=== PATIENT | female | born 1980 | race Caucasian/White ===

== ENCOUNTER 2019-02-12 09:23 | Emergency (ER) | payer OTHER, SELFPAY ==
--- NOTE | 2019-02-12 09:35 | DI.RAD.S_ITS ---
PROCEDURE: XR KNEE LT 3V INDICATIONS: pain TECHNIQUE: 3 views of the knee were acquired. COMPARISON: None. FINDINGS: Bones: No fractures or dislocations. No suspicious bony lesions. Soft tissues: No joint effusion. Intra-articular loose body projects over the suprapatellar recess measuring 18 mm. No suspicious soft tissue calcifications. IMPRESSION: Intra-articular loose body. No acute fracture. No osseous lesion. If symptoms and/or clinical suspicion for pathology persist, further assessment with repeat, or advanced imaging (e.g., CT, MRI, or bone scan) may be helpful for further assessment. Dictated by: Yanna Edwards M.D. on 02/12/2019 at 10:08 Approved by: Yanna Edwards M.D. on 02/12/2019 at 10:21
[2019-02-12 10:25] VITALS: BP 117/76; PULSE 58; RESP 15; TEMP 37.2; O2SAT 98; BMI 31.6
--- NOTE | 2019-02-12 10:35 | ED_ITS ---
HPI - Extremity Injury (Lower) General Chief Complaint: Extremity Injury, Lower Stated Complaint: LT KNEE/TORN LIGAMENT Time Seen by Provider: 02/12/19 09:33 Source: patient and family Mode of arrival: wheelchair Limitations: no limitations History of Present Illness HPI Narrative: 38-year-old female nonsmoker with largely normal medical history presents with knee pain since an injury a few days ago. She was sitting in a chair and had her leg bent under her and lean forward when she felt a pop in tearing sensation in her left knee and states that she is pretty sure a ligament moved from the lateral portion of her knee up and over her kneecap to the medial aspect. She states it was causing excruciating pain that radiated down her leg until it popped back. She now has some swelling in her knee which is going down her calf into her ankle. She states her pain is worse with motion and improves with rest. She denies any numbness, tingling or weakness. She does state that her knee feels slightly unstable. She does have a history of internal derangement to this knee and has had some type of surgery in the past but cannot remember exactly what that was MD complaint: knee injury Onset (ago): day(s) Injury: Left: knee Type of Injury: hyperflexion Place: home Severity: severe Relieving factors: rest Exacerbating factors: weight bearing and movement Associated symptoms: snap/pop sensation, swelling and unable to bear weight Related Data Allergies Allergy/AdvReac Type Severity Reaction Status Date / Time No Known Drug Allergies Allergy Verified 02/12/19 10:25 Review of Systems Constitutional Denies chills, Denies fever(s), Denies lethargy and Denies weakness Eyes Denies change in vision, Denies eye discharge, Denies irritation and Denies loss of vision ENT Ears, Nose, Mouth, and Throat: Denies change in voice, Denies neck pain and Denies sore throat Cardiovascular Denies chest pain, Denies irregular heart rhythm, Denies lightheadedness, Denies palpitations, Denies dyspnea, Denies dyspnea on exertion and Denies orthopnea Respiratory Denies cough, Denies dyspnea, Denies dyspnea on exertion and Denies wheezing Gastrointestinal Gastrointestinal: Denies abdominal pain, Denies change in bowel habits, Denies diarrhea, Denies nausea and Denies vomiting Genitourinary Denies hematuria, Denies flank pain, Denies urinary incontinence and Denies urinary urgency Musculoskeletal Reports arthralgias, Reports joint swelling, Reports limited range of motion and Denies neck pain Integumentary/Breasts Denies pruritus, Denies erythema, Denies rash and Denies wounds Neurologic Denies confusion, Denies loss of vision and Denies weakness Psychiatric Denies anxiety, Denies confusion, Denies depression, Denies homicidal ideation and Denies suicidal ideation Endocrine Denies palpitations Hematologic/Lymphatic Denies easy bruising Allergic/Immunologic Denies wheezing Exam Narrative Exam Narrative: GEN: AOx3 and in mild distress EYES: Pupils are equal, round, and reactive to light and accommodation. Extraoccular muscles are intact bilaterally. There is no subconjunctival hemorrhage or exudate. CHEST: Lungs are clear to auscultation bilaterally and free of wheezes, rales, or rhonchi. Heart rate is regular rhythm, there are no murmurs, clicks, rubs, or gallops. There is no chest wall tenderness. ABD: Abdomen is soft and nontender. There is no guarding or rebound. Bowel sounds are normal in all 4 quadrants. There is no mass or organomegaly. EXT: patient's full but painful range of motion of the left knee with a mild effusion. She has some pain in the popliteal fossa but no significant joint line tenderness. She does not demonstrate any obvious ligamentous instability. She does have some swelling distal to the knee which settles in the ankle but no pain in the ankle itself. There is no redness, warmth of her calf to suggest DVT or complication of a Govea cyst rupture SKIN: Warm, pink, and dry. No erythema or rash Initial Vital Signs Initial Vital Signs: Vital Signs Temperature 99.0 F 02/12/19 10:25 Pulse Rate 58 L 02/12/19 10:25 Respiratory Rate 15 02/12/19 10:25 Blood Pressure 117/76 02/12/19 10:25 Pulse Oximetry 98 02/12/19 10:25 Procedures Orthopedic Splinting/Casting Injury #1: Side: left Lower Extremity Injury Location: knee Lower Extremity Immobilizer: knee immobilizer Post splinting neuro exam: intact Post splinting vascular exam: intact Placed by: Nursing Course Orders Ordered: ED Orders 02/12/19 09:35 XR knee LT 3V Stat MDM - Extremity Injury (Lower) Differential Diagnosis Likely acute internal derangement of knee Imaging Data Knee Xray: Radiologist's impression: [address] [address] XRay Report Signed Patient: Carissa Mallory#: [id number] : 1980Acct:[id number] Age/Sex: 38 / FDate of Service: 02/12/19 Loc: ED Accession Number: [id number] Procedure: XR knee LT 3V Ordering Provider: Uriel Randolph D.O. PROCEDURE: XR KNEE LT 3V INDICATIONS: pain TECHNIQUE: 3 views of the knee were acquired. COMPARISON: None. FINDINGS: Bones: No fractures or dislocations. No suspicious bony lesions. Soft tissues: No joint effusion. Intra-articular loose body projects over the suprapatellar recess measuring 18 mm. No suspicious soft tissue calcifications. IMPRESSION: Intra-articular loose body. No acute fracture. No osseous lesion. If symptoms and/or clinical suspicion for pathology persist, further assessment with repeat, or advanced imaging (e.g., CT, MRI, or bone scan) may be helpful for further assessment. Dictated by: Yanna Edwards M.D. on 02/12/2019 at 10:08 Approved by: Yanna Edwards M.D. on 02/12/2019 at 10:21 MDM Narrative Medical decision making narrative: 38-year-old female with history of knee injury and surgery presents with a new injury and swelling, pain and sensation of instability which is concerning for internal derangement of the knee such as ligamentous tear or meniscal involvement. Exam demonstrates no ligamentous laxity and sensation of instability made be due to effusion versus a more concerning cause such is ligamentous tear. X-ray was unremarkable and knee immobilizer provided. I mentioned to the patient that I thought an MRI was the most likely next reasonable step but that would have to happen as an outpatient. She seemed a bit upset at this and wanted an MRI today but I informed her that is not something that we typically happen out of the emergency department. Encouraged her to follow up with her primary care providers and gave her contact info for our orthopedist in the event things did not move forward and improve. Eventually she seemed to have her questions answered to her apparent satisfaction and felt better with an immobilizer and was able to ambulate without significant difficulty or crutches Discharge Plan Departure Patient Disposition: Home Clinical Impression: Internal derangement of knee Qualifiers: Laterality: left Qualified Code(s): M23.92 - Unspecified internal derangement of left knee Discharge Date/Time: 02/12/19 11:13 Interventions: ED Discharge Assessment Last Done: 02/12/19 11:12 Instructions: DI for Knee Sprain Activity Restrictions/Additional Instructions: *You have been diagnosed with [ acute internal derangement of left knee, possible ligamentous or meniscal tear ] *What to do: *Take medications as directed *Follow up with your primary care provider in 2-3 days, call for an appointment. Let them know you were seen in the Emergency Department and that we ask that you be seen in follow up. Additionally, I provided the contact information for our on-call orthopedist should you wish to follow up with him *Return to ER if you should have any new, worsening or concerning symptoms * your x-ray today was interpreted as no fracture or dislocation. Your exam would suggest a soft tissue injury and it seems reasonable for your primary care provider to consider an MRI of your knee. Please discuss this at your follow up Referrals: Chris Campbell MD [Physician] -
--- NOTE | 2019-02-12 11:11 | PC.NURSE ---
[facility] and is slow, upset not able to get mri .
== END 2019-02-12 11:13 | disposition home or self-care (01) ==
PROVIDERS: Emergency Provider Emergency Medicine
DX: M23.92 Unspecified internal derangement of left knee (principal)
CPT/HCPCS: 73562; 99283

== ENCOUNTER → 2019-03-21 18:55 | Outpatient (CLI) | payer OTHER, SELFPAY ==
--- NOTE | 2019-03-21 | DI.MRI.S_ITS ---
PROCEDURE: MR KNEE LT WO CON INDICATIONS: Left Knee pain TECHNIQUE: Noncontrast sagittal PD fast spin echo and T2 fast spin echo with fat saturation, sagittal 3-D FLASH with fat saturation; coronal T1 spin echo and PD fast spin echo with fat saturation, and axial PD fast spin echo with fat saturation through the knee. COMPARISON: [facility], MR, LOWER EXTREM. JNT WO CONTRAST, 02/09/2010, 16:57. FINDINGS: Image quality: Excellent. Menisci: Lateral meniscus appears intact. No definite medial meniscal tear is identified however there is prominent fluid signal intensity adjacent to the anterior horn which raises the possibility of para meniscal cyst related to occult meniscal tear versus atypical meniscosynovial recess. Cruciate ligaments: The anterior and posterior cruciate ligaments appear intact. Medial structures: The medial collateral ligament appears intact. The posterior oblique ligament, semimembranosus tendon insertions, oblique popliteal ligament, and meniscocapsular junction appear intact. Visualized portions of the pes anserinus tendons appear normal. No abnormal bursal fluid. Lateral structures: The lateral collateral ligament, long and short heads of the biceps femoris tendon appear intact. The popliteus tendon appears normal; the popliteofibular ligament appears intact. The posterosuperior and anteroinferior popliteomeniscal fascicles appear intact. The arcuate and fabellofibular ligaments appear intact, on either side of the lateral inferior geniculate artery. Iliotibial band appears normal. Anterior structures: Prepatellar and superficial infrapatellar subcutaneous edema/fluid.The quadriceps and patellar tendons appear intact. Patellar alignment is normal. No femoral trochlear dysplasia or ventral trochlear prominence. No edema in the infrapatellar fat pad. Bones and cartilage: No focal marrow contusion or discrete low signal fracture line. Within the medial compartment, there is mild diffuse surface fraying of the femoral trochlear articular cartilage. There is intrasubstance signal change of the femoral and tibial cartilage near the intercondylar notch, and chronic appearing subchondral osseous fragment measuring 9 mm in image 21 series 10 which is partially fused area disc represent chronic osteochondral defect with partially fused in situ fragment, postsurgical sequela related to microfracture, or previous subchondral fracture. Within the lateral compartment, the femoral and tibial articular cartilage appears grossly preserved. Within the patellofemoral compartment, articular cartilage appears grossly preserved. Joint space: No pathologic joint effusion. Trace fluid between the semimembranosus and gastrocnemius tendons no definite form cyst. However, multiloculated lateral popliteal ganglion cyst incidentally noted, part of which may be intramuscular. This measures 1.0 x 2.2 cm cross section area on axial image 20 series 6 and 2.9 cm in the cephalocaudad dimension on sagittal image 22 series 8. Intra-articular loose body measuring 1 cm seen image 78 series 9 adjacent to the proximal portion of the PCL. This finding appears new since the prior study. Additional loose body adjacent to the posterior cortex of the distal femoral metaphysis measuring 7 mm image 56 series 9, as before. IMPRESSION: No definite meniscal tear. Prominent cystic fluid adjacent to the anterior horn of the medial meniscus with differential as above. Please see discussion. Prominent osseous irregularity involving the subchondral medial femoral condyle near the intercondylar notch (as before), which could represent postsurgical changes, partially fused in situ fragment related to osteochondral defect or posttraumatic sequela as discussed above. There is increased ossification since the remote prior study. Multiple loose bodies, one of which appears new. It appears grossly unchanged Interval development of lateral popliteal ganglion cyst. Dictated by: Garett Cronin M.D. on 03/22/2019 at 9:14 Approved by: Garett Cronin M.D. on 03/22/2019 at 9:26
== END ==
PROVIDERS: PCP Family Medicine; Visit Provider Family Medicine
DX: M25.562 Pain in left knee (principal); M67.462 Ganglion, left knee; M23.42 Loose body in knee, left knee
CPT/HCPCS: 73721

== ENCOUNTER → 2020-06-28 15:18 | Outpatient (CLI) | payer OTHER, SELFPAY ==
[2020-06-29 20:38] LABS: COVID19 Sendout Not Detected (Not Detect)
== END ==
PROVIDERS: PCP Family Medicine; Visit Provider Nurse Practitioner
DX: Z11.59 Encounter for screening for other viral diseases (principal)
CPT/HCPCS: 87635

== ENCOUNTER 2020-07-01 12:05 | Day surgery (SDC) | payer OTHER, SELFPAY ==
--- NOTE | 2020-07-01 | PATH_ITS ---
[facility] Accession Number: [id number] . 01 Material submitted: . gastrointestinal site - GASTRIC . 02 Diagnosis: Gastric: Portion of gastric antral mucosa with mild chronic inflammation. Negative for Helicobacter organisms by immunohistochemistry. Negative for intestinal metaplasia. Negative for dysplasia and malignancy. MRV 07/03/2020 1421 Local . 02 Electronically signed: . Elizabeth Downing MD, Pathologist NPI- [id number] . 01 Gross description: . GASTRIC: Received in formalin is 1 fragment(s) of sue, soft tissue measuring 0.3 x 0.2 x 0.2 cm submitted entirely in 1 cassette(s) /BETTY 07/02/2020 0145 Local . 02 Microscopic: . An immunohistochemical stain was performed to evaluate for Helicobacter organisms and is negative. The control stain showed appropriate reactivity. . * This test was developed and its performance characteristics determined by [facility]. It has not been cleared or approved by the U.S. Food and Drug Administration. The FDA has determined that such clearance or approval is not necessary. This test is used for clinical purposes. It should not be regarded as investigational or for research. . 02 Pathologist provided ICD-10: K21.9, K29.70 . 02 CPT . 583082, W75036 Performed at: 01 [facility] [address], [place], [place] [id number] MD El Lizarraga MD Phone: [phone] Performed at: 02 [facility] [place] [address] [place], [place] [id number] MD Mery Forman MD Phone: [phone]
[2020-07-01 12:41] VITALS: BP 118/66; PULSE 63; RESP 16; TEMP 36.2; O2SAT 98; BMI 32.5
[2020-07-01] MEDS: LACTATED RINGERS 1,000 ML 42 ML IV (12:49)
--- NOTE | 2020-07-01 12:53 | PM.HP.1 ---
History of Present Illness History of Present Illness Date Patient Seen: 07/01/20 Time Patient Seen: 12:53 Chief complaint: EGD Narrative: Severe GE reflux Patient History Family & Social History Social History: household members spouse,children Tobacco & Substance use: Smoking Status Former smoker alcohol intake never Substance Use Type does not use Meds Home Medications and Allergies Home Medications Medication Instructions Recorded Confirmed Type levothyroxine [Synthroid] 137 mcg PO DAILY 07/01/20 07/01/20 History pantoprazole 40 mg PO BID 07/01/20 07/01/20 History Allergies Allergy/AdvReac Type Severity Reaction Status Date / Time No Known Drug Allergies Allergy Verified 07/01/20 12:39 Exam Vital Signs (past 8 hours): - 07/01/20 12:41 Temperature 97.2 F L Pulse Rate 63 Respiratory Rate 16 Blood Pressure 118/66 Pulse Oximetry 98 Oxygen Delivery Method Room Air Narrative Exam Narrative: Oropharynx free of lesions Chest clear to auscultation percussion Cardiac exam reveals no S3 or murmur Assessment & Plan Assessment & Plan narrative: Severe GERD rule out Randle's esophagus rule out esophagitis. Risks, benefits, alternatives have been explained.
--- NOTE | 2020-07-01 12:54 | PM.OP.ENDO ---
Operative Date/Time/Diagnoses Date of procedure: 07/01/20 Time of procedure: 12:55 Pre-op diagnosis: See indication and findings Procedure & Clinicians Study performed: EGD Same procedure as scheduled: Yes Indications: Severe GE reflux Surgeon: Carey Gonzalez Procedure Notes Procedure in detail: After informed consent was obtained the patient was placed in left lateral decubitus position. Video upper scope was placed into the oropharynx and with the patient's help swallowed into the esophagus. The esophagus, stomach, duodenum were carefully examined. On withdrawal, retroflexed view the GE junction was performed. The scope was removed. The patient tolerated procedure well. Blood loss none Complications none Sedation Total sedation time 10 minutes Versed 11 mg fentanyl 100 micro g IV titration Findings 1. Normal esophagus the with a wide open lower esophageal sphincter/mild Schatzki's ring 2. Small hiatal hernia 3. Patchy gastric erythema biopsies taken to rule out Helicobacter 4. Normal duodenal bulb and sweep We will merely await current biopsies. Then we can discuss by telephone whether or not and how to taper medication. Currently she is only having heartburn 3 times a week with new dietary restrictions.
[2020-07-01] MEDS: fentaNYL 250 MCG/5 ML INJ IV (13:02)
[2020-07-01] MEDS: MIDAZOLAM 5 MG/5 ML VIAL IV ×9 (13:02→13:11)
[2020-07-01 13:19] VITALS: BP 113/59; PULSE 84; RESP 14; TEMP 36.2; O2SAT 93
[2020-07-01 13:23] VITALS: BP 116/59; PULSE 77; RESP 10; TEMP 36.1; O2SAT 92
[2020-07-01 13:28] VITALS: BP 116/71; PULSE 76; RESP 14; TEMP 36.6; O2SAT 96
[2020-07-01 13:33] VITALS: BP 113/60; PULSE 72; RESP 13; TEMP 36.1; O2SAT 94
[2020-07-01 13:41] VITALS: BP 109/68; PULSE 72; RESP 14; TEMP 36.2; O2SAT 95
== END 2020-07-01 14:00 | disposition home or self-care (01) ==
PROVIDERS: PCP Family Medicine; Referring Provider Internal Medicine Gastroenterology; Visit Provider Internal Medicine Gastroenterology
PROC: 0DJ08ZZ Inspection of Upper Intestinal Tract, Via Natural or Artificial Opening Endoscopic (ICD-10-PCS; CPT 43235; principal; 2020-07-01 13:30)
DX: K21.9 Gastro-esophageal reflux disease without esophagitis (principal); K44.9 Diaphragmatic hernia without obstruction or gangrene; K22.2 Esophageal obstruction; E66.9 Obesity, unspecified; Z68.32 Body mass index [BMI] 32.0-32.9, adult; K29.50 Unspecified chronic gastritis without bleeding
CPT/HCPCS: 43239; J2250; J3010

== ENCOUNTER → 2020-07-11 10:05 | Outpatient (CLI) | payer OTHER, SELFPAY ==
[2020-07-12 20:43] LABS: COVID19 Sendout Not Detected (Not Detect)
== END ==
PROVIDERS: PCP Family Medicine; Visit Provider Physician Assistant
DX: Z11.59 Encounter for screening for other viral diseases (principal)
CPT/HCPCS: 87635

== ENCOUNTER → 2021-12-03 07:15 | Outpatient (CLI) | payer OTHER, SELFPAY ==
--- NOTE | 2021-12-03 07:17 | DI.US.S_ITS ---
PROCEDURE: US PELVIC COMPLETE INDICATIONS: MENORRHAGIA TECHNIQUE: Real-time scanning was performed of the pelvic organs, with image documentation. Additional endovaginal scanning was necessary due to incomplete visualization of the adnexal and endometrial structures by transabdominal scanning. COMPARISON: None. FINDINGS: Uterus: Uterus is anteverted and is enlarged in size at 10.5 x 5.2 x 6.5 cm. The myometrium is heterogeneous. No discrete uterine fibroid is seen. There is suggestion of a 2.6 x 2 x 2.4 cm echogenic and solid appearing lesion within endometrium. No internal vascularity is seen. No endometrial fluid. Ovaries: The right ovary measures 2.8 x 1.6 x 1.8 cm. The left ovary measures 3.4 x 2 x 3.1 cm. The ovaries have a normal sonographic appearance. 2 x 1.6 x 1.7 cm simple cyst is seen in left ovary. No adnexal masses are seen. Other: No pathologic free abdominal or pelvic fluid. IMPRESSION: 1. 2 x 2.6 x 2.4 cm solid mass in endometrium concerning for benign or malignant endometrial neoplasm, suggest [employer] correlation. No internal vascularity is seen within this mass. 2. Enlarged uterus with heterogeneous myometrial echotexture. No definite discrete uterine fibroid is seen. 3. Simple cyst in left ovary as above. No solid appearing ovarian lesion. No evidence of ovarian torsion. We strive to produce accurate, complete, and clear reports of imaging services. To assist us in improving patient care, this report was composed using standard report templates and voice recognition software. Therefore, it may contain abnormal punctuation, insertions and/or omissions. Occasional wrong-word or sound-alike substitutions may occur. Though we review the report and make efforts to correct it, we do recommend that the report be read carefully in proper context to recognize any text inaccuracies. Dictated by: Jake Fernandez M.D. on 12/03/2021 at 9:14 Approved by: Jake Fernandez M.D. on 12/03/2021 at 9:17
== END ==
PROVIDERS: PCP Family Medicine; Referring Provider Obstetrics & Gynecology; Visit Provider Obstetrics & Gynecology
DX: N92.0 Excessive and frequent menstruation with regular cycle (principal); N85.9 Noninflammatory disorder of uterus, unspecified; N85.2 Hypertrophy of uterus; N83.292 Other ovarian cyst, left side
CPT/HCPCS: 76830; 76856

== ENCOUNTER → 2022-01-13 10:37 | Outpatient (CLI) | payer OTHER, SELFPAY ==
[2022-01-13 11:21] LABS: COVID19 -Nasal RAPID Negative (Negative)
== END ==
PROVIDERS: PCP Family Medicine; Visit Provider Obstetrics & Gynecology
DX: Z01.812 Encounter for preprocedural laboratory examination (principal); Z20.822 Contact with and (suspected) exposure to COVID-19
CPT/HCPCS: 87635

== ENCOUNTER 2022-01-14 07:43 | Day surgery (SDC) | payer OTHER, SELFPAY ==
[2021-12-31 12:06] VITALS: BMI 35.6
[2022-01-14] VITALS (10 sets, daily range): BP systolic 102–131; BP diastolic 45–73; PULSE 56–100; RESP 11–16; TEMP 36–37.1; O2SAT 92–100; BMI 35.6
[2022-01-14] MEDS: LACTATED RINGERS 1,000 ML 42 ML IV ×2 (08:25→11:23)
--- NOTE | 2022-01-14 10:07 | PM.PREOP ---
Pre-operative Note COVID-19 COVID-19 status: Negative Result date/Date tested (Pos, Neg/Pending): 01/14/22 Criteria for continued procedure: Non-surgical alternatives not available or appropriate per current SOC Interval Note History & Physical reviewed/Exam performed by Physician: Yes Changes to H&P: No
--- NOTE | 2022-01-14 10:28 | SUR.OPER ---
Lithotomy on padded OR bed, head on pillow, arms secured on padded arm boards at <90 degrees abduction. Legs secured in padded yellow fins stirrups.
[2022-01-14] MEDS: SILVER NITRATE STICK 2 EACH TOP (11:07)
--- NOTE | 2022-01-14 11:11 | P.OP_ITS ---
Operative Date/Time/Diagnoses Date of procedure: 01/14/22 Time of procedure: 10:10 Pre-op diagnosis: Endometrial mass Post-op diagnosis: same Procedure & Clinicians Procedure: Procedures Operation Date: 01/14/22 09:15 Actual Procedure Side Surgeon p Hysteroscopy w/ polypectomy, D&C of uterus & Endometrial Ablation (novasure) Francisco Zimmerman MD Indications: Cammie is a 41 yo WF, LMP 12/24/2021 who presented with a 1 year history of progressively heavy and longer lasting menses.? Her menses remain regular but her typical periods up until a year ago which were 3-4 days in length and minimal to moderate flow, have now steadily increased to the point of they last 5-7 days and are associated with passage of large clots, overflows, and nighttime accidents which prompted the patient to wear Depends undergarments at night well she is on her periods.? Contraception is by vasectomy.? Her Paps have always been normal with her most recent Pap 2 years ago.? A recent pelvic ultrasound performed 12/03/2021 shows: FINDINGS:? ?? Uterus:? Uterus is anteverted and is enlarged in size at 10.5 x 5.2 x 6.5 cm. The myometrium is heterogeneous.? No discrete uterine fibroid is seen.? There is suggestion of a 2.6 x 2 x 2.4 cm echogenic and solid appearing lesion within endometrium.? No internal vascularity is seen.? No endometrial fluid. ? Ovaries:? The right ovary measures 2.8 x 1.6 x 1.8 cm.? The left ovary measures 3.4 x 2 x 3.1 cm.? The ovaries have a normal sonographic appearance.? 2 x 1.6 x 1.7 cm simple cyst is seen in left ovary.? No adnexal masses are seen. ? Other:? No pathologic free abdominal or pelvic fluid. ? ? IMPRESSION:? 1. 2 x 2.6 x 2.4 cm solid mass in endometrium concerning for benign or malignant endometrial neoplasm, suggest BATCHING OPERATOR correlation.? No internal vascularity is seen within this mass.? 2. Enlarged uterus with heterogeneous myometrial echotexture.? No definite dis crete uterine fibroid is seen. 3. Simple cyst in left ovary as above.? No solid appearing ovarian lesion.? No evidence of ovarian torsion.? Patient denies intermenstrual bleeding or postcoital bleeding.? 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 Options for further evaluation and treatment of her menorrhagia/endometrial mass were discussed at length.? In office endometrial sampling would be an option but it would not be therapeutic and given the fact that she has what appears to be localized endometrial lesion, sampling may fail to identify the nature of this mass.? Instead patient would prefer to proceed with hysteroscopy and resection of the mass for both diagnostic and therapeutic purposes while at the same time having endometrial ablation performed to either and her menses or significantly reduce menstrual flow with future periods.? In the meanwhile, will initiate tranexamic acid 1300 mg p.o. t.i.d. x5 days with her next period in an attempt to decrease menstrual flow.? After consideration of all options the patient has decided to proceed with hysteroscopy and resection of endometrial mass, dilation and curettage of the uterus, and endometrial ablation (NovaSure).? Her surgery is currently scheduled for the main OR of [facility] on 01/14/2022 and she presents today for her scheduled surgery. Surgeon: Francisco Zimmerman Anesthesia Type: General Operative Notes Findings: The uterus is TNS and mid-anteverted to palpation. Hysteroscopy showed the mass to be a submucous myoma with no atypical vessels or other abnormalities. The endometrium itself was thin and bland, with no focal abnormalities. Unfortunately the endocervical canal is tight and could only be dilated to 7 mm which was insufficent to admit the available resectoscope into the endometrial cavity therefore resection of the endometrial mass was not possible. Closure Type: not applicable Specimen(s): none Estimated blood loss (mL): 25 Blood products transfused: none Procedure in detail: With the patient under satisfactory general anesthesia in the modified dorsal lithotomy position, the perineum, vagina and lower abdomen were prepped and draped in usual fashion for vaginal surgery. A pre-surgical safety time-out was then taken in accordance with [facility] protocols. A speculum was then inserted in the vagina and a single-tooth tenaculum a was applied to the anterior lip of the cervix. The uterus was sounded to 9 cm in the mid to retroverted plane. Sequential dilation of the endocervical canal to 7 mm was accomplished with ease and insertion of the hysteroscope revealed the findings as noted above. The cervix was further dilated to 8 mm but could not be dilated beyond that point. Unfortunately be available resectoscope for removal of the endometrial mask was 9 mm in diameter and could not be introduced successfully into the endometrial cavity. As result the resection of the endometrial mass could not be performed and therefore the endometrial ablation itself could not be performed either. The operation was then terminated by removal of the tenaculum from the anterior lip of the cervix. No bleeding was encountered. The speculum was then removed and the patient having tolerated the procedure well was remain as deferred to the PACU for a period of observation and recovery. Complications: none Post-operative Condition: stable Disposition: PACU Plan for aftercare: Routine postoperative care. Follow-up visit will be in 2 weeks to discuss next steps.
[2022-01-14] MEDS: ACETAMINOPHEN 325 MG TABLET 650 MG PO (11:40)
[2022-01-14] MEDS: CODEINE/ACETAMINOPHEN 30/300 TABLET 1 TAB PO (12:02)
--- NOTE | 2022-01-14 12:03 | SUR.PHASEI ---
SBAR report at bedside to Breanna ANDERSON.
--- NOTE | 2022-01-14 12:30 | SUR.PHASEII ---
Addendum entered by Marisol Luna R.N. 01/14/22 12:32: 1233-Dr Zimmerman here at bedside now to speake with patient. Original Note: 1230-Patient feels headache down to 5/10 now. color pinker,was pale on arrival to phase 2. Minimal perineal drainage. Dr Obregon called reguarding post op orders/discharge and to speak with patient. -States on his way'
[2022-01-14] MEDS: ONDANSETRON 4 MG/2 ML INJ IV (13:09)
--- NOTE | 2022-01-14 13:20 | SUR.PHASEII ---
01/14/22-1320 period of nausea after up. zofran given. effective. feels better. iv out. discharge paperwork given to patient,reviewed earlier. has all belongings. Discharged by wheelchair to husbands care and car.
== END 2022-01-14 13:21 | disposition home or self-care (01) ==
PROVIDERS: PCP Family Medicine; Referring Provider Obstetrics & Gynecology; Visit Provider Obstetrics & Gynecology
PROC: 0U5B8ZZ Destruction of Endometrium, Via Natural or Artificial Opening Endoscopic (ICD-10-PCS; CPT 58563; principal; 2022-01-14 09:15)
DX: D25.0 Submucous leiomyoma of uterus (principal); E03.9 Hypothyroidism, unspecified
CPT/HCPCS: 58555; 81025; J1100; J2405; J2704; J3010